=== PATIENT | female | born 1940 | race Caucasian/White ===

== ENCOUNTER → 2016-08-16 | Outpatient (CLI) | payer MEDICARE, OTHER ==
--- NOTE | 2016-08-17 06:47 | BD ---
EXAMINATION TYPE: MG DEXA axial skeleton. DATE OF EXAM: 08/16/2016 3:54 PM COMPARISON: Prior DEXA bone scan report April 21, 2004. CLINICAL HISTORY: Postmenopausal female with osteoporosis per order Height: 61 Weight: 101.9 FRAX RISK QUESTIONS: Alcohol (3 or more units per day): no Family History (Parent hip fracture): no Glucocorticoids (More than 3mos): no (Ex: prednisone, prednisolone, methylprednisolone, dexamethasone, and hydrocortisone). History of Fracture in Adulthood: no Secondary Osteoporosis: 1. Type 1 Diabetes: no 2. Hyperthyroidism: no 3. Menopause before 45: at age 44 4. Malnutrition: no 5. Chronic liver disease: no Rheumatoid Arthritis: no Current Tobacco Use: no RISK FACTORS HISTORY OF: Hip Fracture (Right/Left): no Spine Fracture: no History of Wrist Fracture: no Surgery to Spine/Hip(right/left)/Wrist (right/left):no Family History of Osteoporosis: yes Active: yes Diet low in dairy products/other sources of calcium: no Postmenopausal woman: at age 44 Lost more than 2 inches in height since high school: just 2 inches Frequent falls: no Adrenal Insufficiency: no MEDICATIONS: Altace, omeprazole EXAM MEASUREMENTS: Bone mineral densitometry was performed using the [employer] System. Bone mineral density as measured about the Lumbar spine is: ----- L1-L4(G/cm2): 0.994 T Score Values are as follows: ----- L2: -2.4 ----- L3: -1.8 ----- L4: -1.4 ----- L1-L4: -1.5 Bone mineral density has: increased 4.7 % since study of: 04.21.2004 Bone mineral density about the R hip (g/cm2): 0.701 Bone mineral density about the L hip (g/cm2): 0.789 T Score values are as follows: -----R Neck: -2.4 -----L Neck: -1.8 -----R Intertrochanter: -1.8 -----L Intertrochanter: -2.1 Bone mineral density has: decreased -3.1 of: 04.21.2004 IMPRESSION: Osteopenia (T Score between -2.5 and -1 as noted by T score values in low back and both hips is curre ntly present. There is slightly increased risk of fracture and the patient may be considered for german tment. Re-Screen 1-2 years. NOTE: T-SCORE=SD OF THE YOUNG ADULT MEAN.
--- NOTE | 2016-08-17 13:12 | MM ---
Reason for exam: screening (asymptomatic). Last mammogram was performed 1 year ago. History: Patient is postmenopausal. Family history of breast cancer in mother at age 67. Benign excisional biopsy of the left breast, 1995. Took estrogen for 20 years. Physical Findings: A clinical breast exam by your physician is recommended on an annual basis and results should be correlated with mammographic findings. MG Screening Mammo w CAD Bilateral CC and MLO view(s) were taken. Prior study comparison: August 08, 2015, bilateral MG screening mammo w CAD. August 06, 2014, bilateral MG screening mammo w CAD. The breast tissue is extremely dense which could obscure a lesion on mammography. No significant changes when compared with prior studies. ASSESSMENT: Benign, BI-RAD 2 RECOMMENDATION: Routine screening mammogram of both breasts in 1 year.
== END ==
LOC: RADMAMWWP 15:11
PROVIDERS: ATTEND Internal Medicine
DX: Z12.31 Encounter for screening mammogram for malignant neoplasm of breast (principal); M85.89 Other specified disorders of bone density and structure, multiple sites; M81.0 Age-related osteoporosis without current pathological fracture
CPT/HCPCS: 77080; G0202

== ENCOUNTER → 2016-09-10 | Outpatient (CLI) | payer MEDICARE, OTHER ==
--- NOTE | 2016-09-10 15:01 | US ---
EXAMINATION TYPE: US carotid duplex BILAT DATE OF EXAM: 09/10/2016 2:45 PM COMPARISON: NONE CLINICAL HISTORY: I65.23 carotid stenosis. EXAM MEASUREMENTS: RIGHT: Peak Systolic Velocity (PSV) cm/sec ----- Right CCA: 81.6 ----- Right ICA: 106.1 ----- Right ECA: 72.2 ICA/CCA ratio: 1.3 RIGHT: End Diastole cm/sec ----- Right CCA: 24.8 ----- Right ICA: 31.7 ----- Right ECA: 11.7 LEFT: Peak Systolic Velocity (PSV) cm/sec ----- Left CCA: 76.7 ----- Left ICA: 97.6 ----- Left ECA: 144.9 ICA/CCA ratio: 1.3 LEFT: End Diastole cm/sec ----- Left CCA: 21.6 ----- Left ICA: 39.2 ----- Left ECA: 18.8 VERTEBRALS (direction of flow): Right Vertebral: Antegrade Left Vertebral: Antegrade Mild plaque noted bilateral bifurcations. Slightly increased velocities left ECA IMPRESSION: 1. Mild plaque noted bilaterally with no significant hemodynamic stenosis.
--- NOTE | 2016-09-11 08:56 | ECHOF ---
Referral Reason:I65.23 carotid stenosis MEASUREMENTS -------- HEIGHT: 152.4 cm WEIGHT: 45.8 kg BP: IVSd: 0.8 cm (0.6 - 1.1) LVIDd: 3.5 cm (3.9 - 5.3) LVPWd: 1.1 cm (0.6 - 1.1) IVSs: 1.0 cm LVIDs: 2.9 cm LVPWs: 1.2 cm LA Diam: 2.8 cm (2.7 - 3.8) Ao Diam: 2.7 cm (2.0 - 3.7) AV Cusp: 1.6 cm (1.5 - 2.6) LA Diam: 3.2 cm (2.7 - 3.8) MV EXCURSION: 21.714 mm (> 18.000) MV EF SLOPE: 138 mm/s (70 - 150) EPSS: 0.3 cm MV E Chirag: 0.89 m/s MV DecT: 180 ms MV A Chirag: 0.63 m/s MV E/A Ratio: 1.41 RAP: 5.00 mmHg RVSP: 40.84 mmHg FINDINGS -------- Sinus rhythm. This was a technically good study. LV size, wall thickness and systolic function are normal, with an EF greater than 55%. The right ventricle is normal in size. The right atrial size is normal. Small Diane Membranous vsd. There is mild aortic valve sclerosis. There is no evidence of aortic regurgitation. Mild mitral annular calcification present. Mild mitral regurgitation is present. Mild tricuspid regurgitation present. There is mild pulmonary hypertension. The right ventricular systolic pressure, as measured by Doppler, is 40.84mmHg. There is no pulmonic regurgitation present. The aortic root size is normal. There is no pericardial effusion. CONCLUSIONS -------- 1. LV size, wall thickness and systolic function are normal, with an EF greater than 55%. 2. Small Diane Membranous vsd. 3. There is mild aortic valve sclerosis. 4. Mild mitral annular calcification present. 5. Mild mitral regurgitation is present. 6. Mild tricuspid regurgitation present. 7. There is mild pulmonary hypertension. 8. The right ventricular systolic pressure, as measured by Doppler, is 40.84mmHg. MARKET RISK ANALYST: Arlette Mchugh RDCS
== END | disposition home or self-care (01) ==
LOC: RADUSMAIN 14:17
PROVIDERS: ATTEND Internal Medicine
DX: I65.23 Occlusion and stenosis of bilateral carotid arteries (principal); I34.0 Nonrheumatic mitral (valve) insufficiency
CPT/HCPCS: 93306; 93880

== ENCOUNTER → 2016-11-16 | Outpatient (CLI) | payer MEDICARE, OTHER ==
--- NOTE | 2016-11-16 13:33 | MR ---
EXAMINATION TYPE: MR brain and iac wo/w con DATE OF EXAM: 11/16/2016 12:34 PM COMPARISON: Previous study dated 04/04/2015. HISTORY: Benign neoplasm of cranial nerves TECHNIQUE: Multiplanar, multiecho imaging of the brain was obtained with and without intravenous adm inistration of 10 mL intravenous MultiHance. FINDINGS: Midline structures are unremarkable. There is a normal craniocervical junction. There is evidence of encephalomalacia involving the right cerebellar hemisphere. There is no evidence of restricted diffusion. There are normal vascular flow voids. The orbits are normal. There has been a right occipital craniotomy. The left CP angle is normal. The seventh 8th nerve compl ex on the left is unremarkable. There is no abnormal enhancement on the left. There is no other abnormal enhancement. There are scattered high signal FLAIR lesions throughout the deep white matter tracts of the cerebral hemispheres. These are unchanged from previous. There is mucoperiosteal disease involving the maxillary sinuses bilaterally. This is unchanged from p revious. There is no mass effect, midline shift or intracranial blood identified. There is a lesion in the CP angle extending into the right internal auditory canal. This has decrease d in size from 21 x 8.6 mm to 17.5 x 7.6 mm. IMPRESSION: 1. 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 2. 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 3. STABLE, PUNCTATE FLAIR LESIONS IN BOTH CEREBRAL HEMISPHERES
== END | disposition home or self-care (01) ==
LOC: RADMRIMAIN 10:46
PROVIDERS: ATTEND Otolaryngology
DX: D36.10 Benign neoplasm of peripheral nerves and autonomic nervous system, unspecified (principal); G93.89 Other specified disorders of brain; Z98.890 Other specified postprocedural states
CPT/HCPCS: 82565; 84520; 70553; 36415; A9577

== ENCOUNTER → 2017-02-04 | Outpatient (CLI) | payer MEDICARE, OTHER ==
--- NOTE | 2017-02-04 21:21 | US ---
EXAMINATION TYPE: US kidneys/renal and bladder DATE OF EXAM: 02/04/2017 COMPARISON: NONE CLINICAL HISTORY: R94.4 Abnormal results of kidney function studies. EXAM MEASUREMENTS: Right Kidney: 8.0 x 5.5 x 3.7 cm Left Kidney: 8.5 x 4.5 x 3.3 cm Post Void Residual Volume: 3.1 mL Right Kidney: No hydronephrosis or masses seen Left Kidney: No hydronephrosis or masses seen Bladder: wnl Bilateral Jets seen: Yes Normal Post Void Residual: Yes There is no evidence for hydronephrosis at this point in time. No nephrolithiasis is seen. No ginger s are identified. The urinary bladder is anechoic. Bilateral ureteral jets are seen. IMPRESSION: No abnormality noted.
== END | disposition home or self-care (01) ==
LOC: RADUSWWP 15:40
PROVIDERS: ATTEND Internal Medicine
DX: R94.4 Abnormal results of kidney function studies (principal)
CPT/HCPCS: 76770

== ENCOUNTER → 2017-10-10 | Outpatient (CLI) | payer MEDICARE, OTHER ==
--- NOTE | 2017-10-10 14:18 | MM ---
Reason for exam: screening (asymptomatic). Last mammogram was performed 1 year and 2 months ago. History: Patient is postmenopausal. Family history of breast cancer in mother at age 67. Benign excisional biopsy of the left breast, 1995. Took estrogen for 20 years. Physical Findings: A clinical breast exam by your physician is recommended on an annual basis and results should be correlated with mammographic findings. MG 3D Screening Mammo W/Cad Bilateral CC and MLO view(s) were taken. Prior study comparison: August 16, 2016, bilateral MG screening mammo w CAD. August 08, 2015, bilateral MG screening mammo w CAD. The breast tissue is heterogeneously dense. This may lower the sensitivity of mammography. Finding #1: There is stable architectural distortion in the left breast consistent with known excisional biopsy. Finding #2: There are typically benign round calcifications in the left breast. There is no discrete abnormality. ASSESSMENT: Benign, BI-RAD 2 RECOMMENDATION: Routine screening mammogram of both breasts in 1 year.
== END | disposition home or self-care (01) ==
LOC: RADMAMWWP 09:05
PROVIDERS: ATTEND Internal Medicine
DX: Z12.31 Encounter for screening mammogram for malignant neoplasm of breast (principal)
CPT/HCPCS: 77063; 77067

== ENCOUNTER → 2017-11-29 | Outpatient (CLI) | payer MEDICARE, OTHER ==
--- NOTE | 2017-11-29 15:05 | MR ---
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 Status post rad iation. TECHNIQUE: Multiplanar, multisequence images of the brain and internal auditory canals is performed without and with IV contrast, utilizing 4.5 mL intravenous Gadavist . FINDINGS: Diffusion weighted images demonstrate no evidence of a recent infarct or other diffusion ab normality. There is no extra-axial fluid collection . The ventricular system and cisternal spaces a re symmetrically prominent as seen on the prior compatible with age-related volume loss. 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 Degree of moderate burden nonspecific white treated as T2/FLAIR foci of hyperintensity throughout the subcortical and periventricular white matter are similar to the prior exam. Again these likely r epresent sequela of microangiopathy. Midline structures demonstrate normal morphology. Degenerative pannus is seen posterior to the dens. The craniocervical junction appears within normal limits. The dural venous sinuses appear patent. Mi ld mucosal thickening is seen within the left maxillary and ethmoid sinuses. Remaining visualized par anasal sinuses and mastoid air cells are well aerated. Globes are unremarkable. 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 The largest dimensions of this mass measures approximately 1.6 cm and 1.9 cm on T 1 postcontrast fat sat axial images 12 and 14 respectively. This measures approximately 2.1 cm in the coronal plane on image 9. This is overall similar in size and morphology to the prior of 11/26/2016. Craniotomy defect along the right posterior lateral occipital lobe is again noted from prior acoustic neuroma resection. No new abnormal areas of enhancement are seen. IMPRESSION: 1. 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 No new normal intracranial enhancement. 2. 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
== END | disposition home or self-care (01) ==
LOC: RADMRIMAIN 12:49
PROVIDERS: ATTEND Otolaryngology
DX: D33.3 Benign neoplasm of cranial nerves (principal); G93.89 Other specified disorders of brain; I73.9 Peripheral vascular disease, unspecified; R90.89 Other abnormal findings on diagnostic imaging of central nervous system; Z98.890 Other specified postprocedural states
CPT/HCPCS: 82565; 84520; 70553; 36415; A9581

== ENCOUNTER → 2018-10-18 | Outpatient (CLI) | payer MEDICARE, OTHER ==
--- NOTE | 2018-10-18 16:39 | BD ---
EXAMINATION TYPE: Axial Bone Density DATE OF EXAM: 10/18/2018 COMPARISON: 2017 CLINICAL HISTORY: 78-year-old female disorder of bone Height: 5 1/2 Weight: 102 FRAX RISK QUESTIONS: Secondary Osteoporosis: 3. Menopause before 45: y RISK FACTORS HISTORY OF: Postmenopausal woman: y If Premenopausal, do you have irregular periods: MEDICATIONS: Additional Medications: blood pressure Additional History: EXAM MEASUREMENTS: Bone mineral densitometry was performed using the [employer] System. Bone mineral density as measured about the Lumbar spine is: ----- L1-L4(G/cm2): 0.968 T Score Values are as follows: ----- L2: -1.6 ----- L3: -1.7 ----- L4: -1.6 ----- L1-L4: -1.8 Bone mineral density has: Decreased -4.2% since study of: 08/16/2016 Bone mineral density about the R hip (g/cm2): 0.679 Bone mineral density about the L hip (g/cm2): 0.784 T Score values are as follows: -----R Neck: -2.6 -----L Neck: -1.8 -----R Total: -2.2 -----L Total: -1.7 Bone mineral density has: Decreased -0.8% since study of: 08/16/2016 IMPRESSION: Osteoporosis (T Score less than -2.5). There is increased fracture risk and therapy is usually indicated based on age. Re-Screen 1-2 years. NOTE: T-SCORE=SD OF THE YOUNG ADULT MEAN.
--- NOTE | 2018-10-19 09:20 | MM ---
Reason for exam: screening (asymptomatic). Last mammogram was performed 1 year ago. History: Patient is postmenopausal. Family history of breast cancer in mother at age 67. Benign excisional biopsy of the left breast, 1995. Took estrogen for 20 years. Physical Findings: A clinical breast exam by your physician is recommended on an annual basis and results should be correlated with mammographic findings. MG Screening Mammo w CAD Bilateral CC and MLO view(s) were taken. Prior study comparison: October 10, 2017, bilateral MG 3d screening mammo w/cad. August 16, 2016, bilateral MG screening mammo w CAD. The breast tissue is heterogeneously dense. This may lower the sensitivity of mammography. No significant changes when compared with prior studies. ASSESSMENT: Negative, BI-RAD 1 RECOMMENDATION: Routine screening mammogram of both breasts in 1 year. Patient should continue monthly self breast exams. A negative report should not preclude additional follow up of suspicious palpable abnormalities.
== END | disposition home or self-care (01) ==
LOC: RADMAMWWP 09:37
PROVIDERS: ATTEND Internal Medicine
DX: Z12.31 Encounter for screening mammogram for malignant neoplasm of breast (principal); M81.0 Age-related osteoporosis without current pathological fracture
CPT/HCPCS: 77067; 77080

== ENCOUNTER → 2019-11-19 | Outpatient (CLI) | payer MEDICARE, OTHER ==
[2019-11-19 08:26] LABS: Basophils % (A) 1 %; Eosinophils # (A) 0.2 k/uL (0-0.7); Eosinophils % (A) 4 %; HCT 39.4 % (34.0-46.0); HGB 13.2 gm/dL (11.4-16.0); Lymphocytes # (A) 1.5 k/uL (1.0-4.8); Lymphocytes % (A) 35 %; MCH 33.4 pg (25.0-35.0); MCHC 33.5 g/dL (31.0-37.0); MCV 99.5 fL (80.0-100.0); Mean Platelet Volume 7.3; Monocytes # (A) 0.2 k/uL (0-1.0); Monocytes % (A) 5 %; Neutrophils # (A) 2.2 k/uL (1.3-7.7); Neutrophils % (A) 52 %; Platelet Count 170 k/uL (150-450); RBC 3.96 m/uL (3.80-5.40); RDW 12.5 % (11.5-15.5); WBC 4.2 k/uL (3.8-10.6)
[2019-11-19 17:58] LABS: African American GFR (CKD) 54.9 (60.0-200.0); Albumin 4.7 g/dL (3.80-4.90); Albumin/Globulin Ratio 2.61 (1.60-3.17); Anion Gap 7.3 mmol/L (4.00-12.00); BUN/Creat Ratio 21.82 Ratio (12.00-20.00); Calcium 9.9 mg/dL (8.7-10.3); Carbon Dioxide 28.7 mmol/L (21.6-31.8); Chol/HDL Ratio 2.11; Globulin 1.8 g/dL (1.6-3.3); LDL Cholesterol,Calculated 108.4 mg/dL (0.0-131.0); Non-African American GFR(CKD) 47.4 (60.0-200.0); Potassium 4.8 mmol/L (3.5-5.5); Total Bilirubin 0.5 mg/dL (0.2-1.2); Total Protein 6.5 g/dL (6.2-8.2); VLDL Calculation 16.6 mg/dL (5.00-40.00)
== END | disposition home or self-care (01) ==
LOC: LABWHC1 07:46
PROVIDERS: ATTEND Internal Medicine
DX: Z00.00 Encounter for general adult medical examination without abnormal findings (principal); E78.2 Mixed hyperlipidemia
CPT/HCPCS: 36415; 80053; 80061; 85025

== ENCOUNTER → 2019-11-21 | Outpatient (CLI) | payer MEDICARE, OTHER ==
--- NOTE | 2019-11-23 10:06 | MR ---
EXAMINATION TYPE: MR brain and iac wo/w con DATE OF EXAM: 11/21/2019 COMPARISON: Previous exam 11/29/2017 HISTORY: Acoustic neuroma follow-up, surgery 2002 TECHNIQUE: Multiplanar, multisequence images of the brain and brainstem, internal auditory canals is performed w ithout and with IV contrast, utilizing 4.5 mL intravenous Gadavist . FINDINGS: Diffusion weighted images demonstrate no evidence of a recent infarct or other diffusion ab normality. There is no extra-axial fluid collection or significant interval change in white matter s ignal abnormality. The ventricular system and cisternal spaces are normal in size and appearance. T he encephalomalacia involving the right cerebellar hemisphere shows a stable appearance. Cortical atr ophy is again noted. There are normal vascular flow voids. Asymmetry at the level of the left shows a similar appearance in the globes. The avidly enhancing focus along the intracanalicular internal aud itory canal region on the right extending towards the right cerebellopontine angle is essentially sta ble. IMPRESSION: Stable exam. No significant interval change is evident.
== END | disposition home or self-care (01) ==
LOC: RADMRIMAIN 08:33
PROVIDERS: ATTEND Otolaryngology
DX: D33.3 Benign neoplasm of cranial nerves (principal)
CPT/HCPCS: 70553; A9585

== ENCOUNTER → 2020-02-04 | Outpatient (CLI) | payer MEDICARE, OTHER ==
--- NOTE | 2020-02-05 10:06 | MM ---
Reason for exam: screening (asymptomatic). Last mammogram was performed 1 year and 4 months ago. History: Patient is postmenopausal. Family history of breast cancer in mother at age 67. Benign excisional biopsy of the left breast, 1995. Took estrogen for 20 years. Physical Findings: A clinical breast exam by your physician is recommended on an annual basis and results should be correlated with mammographic findings. MG 3D Screening Mammo W/Cad Bilateral CC and MLO view(s) were taken. Prior study comparison: October 18, 2018, bilateral MG screening mammo w CAD. October 10, 2017, bilateral MG 3d screening mammo w/cad. The breast tissue is extremely dense which could obscure a lesion on mammography. There is chronic nodularity bilaterally. No significant changes when compared with prior studies. ASSESSMENT: Benign, BI-RAD 2 RECOMMENDATION: Routine screening mammogram of both breasts in 1 year.
== END | disposition home or self-care (01) ==
LOC: RADMAMWWP 10:41
PROVIDERS: ATTEND Internal Medicine
DX: Z12.31 Encounter for screening mammogram for malignant neoplasm of breast (principal)
CPT/HCPCS: 77063; 77067

== ENCOUNTER → 2020-06-30 | Outpatient (CLI) | payer MEDICARE, OTHER ==
--- NOTE | 2020-06-30 12:44 | EST ---
EXERCISE STRESS AGE: 80 SEX: Female HT: 61" WT: 102 pounds PROTOCOL: Jaun STAGE: I DURATION OF EXERCISE: 3 minutes HEART RATE REST: 72 BLOOD PRESSURE REST: 154/74 MAXIMUM HEART RATE ACHIEVED: 154 MAXIMUM BLOOD PRESSURE: 215/71 85% MPHR: 118 100% MPHR: 139 METS: 4.6 INDICATIONS: Abnormal EKG. CLINICAL INFORMATION: Baseline rhythm is a sinus mechanism, rate of 72, normal axis and intervals, nonspecific ST-T wave changes. Baseline blood pressure 154/74 mmHg. The patient exercised per protocol for 3 minute reaching peak rate 154 beats per minute which is equal to 100% maximum predicted heart rate. Peak blood pressure 215/71 mmHg. Test was terminated secondary to fatigue. There was no chest pain. Electrocardiograph monitoring revealed rare PVCs with 0.[address]-segment depression. CONCLUSION: 1. Decreased exercise tolerance with rare PVCs. 2. Nondiagnostic electrocardiograph stress testing secondary to baseline EKG abnormality. 3. If clinically indicated, an imaging stress test will be helpful. MMODL / IJN: [id number] /
== END | disposition home or self-care (01) ==
LOC: RADNMMAIN 09:42
PROVIDERS: ATTEND Internal Medicine
DX: R94.31 Abnormal electrocardiogram [ECG] [EKG] (principal); I21.09 ST elevation (STEMI) myocardial infarction involving other coronary artery of anterior wall
CPT/HCPCS: 93017

== ENCOUNTER → 2020-07-14 | Outpatient (CLI) | payer MEDICARE, OTHER ==
[~2020-07-14] MED LIST: REGADENOSON 0.4 MG/5 ML SYRINGE IV PRN
--- NOTE | 2020-07-14 11:08 | NM ---
EXAMINATION TYPE: NM stress lexiscan cardiolite DATE OF EXAM: 07/14/2020 COMPARISON: NONE HISTORY: Precordial chest pain and abnormal EKG TECHNIQUE: After the intravenous administration of 9.92 mCi Tc 99m Sestamibi - Cardiolite resting SP ECT images acquired 55 minutes post injection. The patient received 0.4mg Lexiscan, 25 mCi Tc 99m Sestamibi - Stress images obtained 35 minutes post injection FINDINGS: Review of stress and rest SPECT images demonstrates fixed defect involving the anterior wall. No defi nite stress-induced ischemia. Gated analysis shows normal wall motion with an estimated left ventricu lar ejection fraction of 88 %. IMPRESSION: No scintigraphic evidence for reversible ischemia. Acute
--- NOTE | 2020-07-14 11:42 | P.STRESS ---
- Stress Test Note Stress Test Results/Findings: Exam Performed: NM stress lexiscan cardiolite Exam Date: 07/14/20 Reason for Exam: ABNORMAL EKG Height: 5 ft 1 in Weight: 45.359 kg Protocol: LEXISCAN CARDIOLITE Stage: N/A Duration of Exercise: N/A Resting Heart Rate: 73 Resting Blood Pressure: 157/79 Maximum Achieved Heart Rate: 113 Maximum Achieved Blood Pressure: 157/79 85% PMHR: 118 100% PMHR: 139 METS: N/A Technologist Comment: Stress Test Results/Findings: This is a 80-year-old female with history of smoking being evaluated for cardiac status, because of abnormal EKG. Based on EKG showed sinus rhythm With T-Wave Inversions in Inferior Leads. Blood Pressure at Rest Is 157/79 with Pulse Rate of 73. A Standard Dose of Lexiscan was infused. EKGs taken during after infusion did not reveal any significant changes from baseline. Patient did not experience any chest pain. Final impression: #1. Number Lexiscan stress test #2. Report on nuclear images to be given by the radiologist
== END | disposition home or self-care (01) ==
LOC: RADNMMAIN 07:44
PROVIDERS: ATTEND Internal Medicine
DX: R94.31 Abnormal electrocardiogram [ECG] [EKG] (principal)
CPT/HCPCS: 93017; 78452; A9500; J2785

== ENCOUNTER → 2020-08-25 | Outpatient (CLI) | payer MEDICARE, OTHER ==
--- NOTE | 2020-08-25 14:39 | US ---
EXAMINATION TYPE: US kidneys/renal and bladder DATE OF EXAM: 08/25/2020 COMPARISON: 02/04/2017 CLINICAL HISTORY: 80-year-old female N18.31 STAGE 3 CHRONIC KIDNEY DISEASE. TECHNIQUE: Multiple sonographic images of the kidneys and bladder are obtained. FINDINGS: Right Kidney: 8.1 x 5.3 x 3.3 cm Left Kidney: 8.5 x 4.7 x 4.6 cm No hydronephrosis. Bladder: No gross abnormality Bilateral Jets seen: yes Post Void Residual Volume: 22.8 mL Normal Post Void Residual: yes IMPRESSION: 1. Small size of the kidneys suggests underlying chronic medical renal disease. No hydronephrosis. 2. Increased postvoid bladder volume of 23 mL still falls within acceptable limits.
== END ==
LOC: RADUSWWP 12:32
PROVIDERS: ATTEND Internal Medicine Nephrology
DX: N18.31 Chronic kidney disease, stage 3a (principal)
CPT/HCPCS: 76770

== ENCOUNTER → 2021-05-22 | Outpatient (CLI) | payer MEDICARE, OTHER ==
[2021-05-22 12:52] LABS: Appearance,Urine Clear (Clear); Bilirubin,Urine Negative (Negative); Blood,Urine Negative (Negative); Color,Urine Yellow; Glucose,Urine (UA) Negative (Negative); Ketones,Urine Negative (Negative); Leukocyte Esterase,Urine Negative (Negative); Nitrite,Urine Negative (Negative); Protein,Urine Negative (Negative); Specific Gravity,Urine 1.016 (1.001-1.035); Urobilinogen,Urine <2.0 mg/dL (<2.0)
[2021-05-22 18:33] LABS: Basophils # (A) 0.05 X 10*3/uL (0.00-0.10); Eosinophils # (A) 0.13 X 10*3/uL (0.04-0.35); Eosinophils % (A) 2.7 %; HCT 36.3 % (37.2-46.3); HGB 11.6 g/dL (12.0-15.0); MCH 32.2 pg (27.0-32.0); MCV 100.8 fL (80.0-97.0); Mean Platelet Volume 10.7 fL (9.5-12.2); Monocytes # (A) 0.44 X 10*3/uL (0.20-1.00); Monocytes % (A) 9.1 %; Neutrophils # (A) 2.71 X 10*3/uL (1.80-7.70); Platelet Count 210 X 10*3/uL (140-440); RDW 12.6 % (11.5-14.5); WBC 4.84 X 10*3/uL (4.50-10.00)
[2021-05-22 21:53] LABS: % Iron Saturation 36.74 (12.00-45.00); African American GFR (CKD) 54.5 (60.0-200.0); Albumin 4.7 g/dL (3.8-4.9); Albumin/Globulin Ratio 2.35 (1.60-3.17); Anion Gap 10.9 mmol/L (10.00-18.00); BUN/Creat Ratio 21.55 Ratio (12.00-20.00); Blood Urea Nitrogen 23.7 mg/dL (9.0-27.0); Calcium 10.2 mg/dL (8.7-10.3); Carbon Dioxide 23.1 mmol/L (20.0-27.5); Ferritin 88.9 ng/mL (10.0-291.0); Magnesium 2.1 mg/dL (1.5-2.4); Phosphorus 3.7 mg/dL (2.4-5.1); Potassium 5.1 mmol/L (3.5-5.5); Total Bilirubin 0.3 mg/dL (0.30-1.20); Total Protein 6.7 g/dL (6.2-8.2); Uric Acid 5.4 mg/dL (2.9-7.7)
== END | disposition home or self-care (01) ==
LOC: LABWHC1 11:19
PROVIDERS: ATTEND Internal Medicine
DX: D64.9 Anemia, unspecified (principal); E55.9 Vitamin D deficiency, unspecified; M10.9 Gout, unspecified; N39.0 Urinary tract infection, site not specified; N25.81 Secondary hyperparathyroidism of renal origin; N18.31 Chronic kidney disease, stage 3a
CPT/HCPCS: 36415; 80053; 81003; 82306; 82728; 83540; 83550; 83735; 83970; 84100; 84550; 85025

== ENCOUNTER → 2021-06-24 | Outpatient (CLI) | payer MEDICARE, OTHER ==
--- NOTE | 2021-06-25 16:57 | BD ---
EXAMINATION TYPE: Axial Bone Density DATE OF EXAM: 06/24/2021 COMPARISON: 2019 CLINICAL HISTORY: Postmenopausal screening Height: 61 Weight: 103.6 FRAX RISK QUESTIONS: Alcohol (3 or more units per day): no Family History (Parent hip fracture): yes Glucocorticoids (More than 3mos): no (Ex: prednisone, prednisolone, methylprednisolone, dexamethasone, and hydrocortisone). History of Fracture in Adulthood: no Secondary Osteoporosis: 1. Type 1 Diabetes: no 2. Hyperthyroidism: no 3. Menopause before 45: no 4. Malnutrition: no 5. Chronic liver disease: no Rheumatoid Arthritis: no Current Tobacco Use: no RISK FACTORS HISTORY OF: Surgery to Spine/Hip(right/left)/Wrist (right/left): no Family History of Osteoporosis: yes Active: yes Diet low in dairy products/other sources of calcium: no Postmenopausal woman: yes Lost more than 2 inches in height since high school: no MEDICATIONS: blood pressure, cholesterol, folic acid, vit d Additional History: EXAM MEASUREMENTS: Bone mineral densitometry was performed using the [employer]. Bone mineral density as measured about the Lumbar spine is: ----- L1-L4(G/cm2): 0.968 T Score Values are as follows: ----- L2: -1.6 ----- L3: -1.5 ----- L4: -1.8 ----- L1-L4: -1.8 Bone mineral density has: 0 % since study of: 10.18.2018 Bone mineral density about the R hip (g/cm2): 0.674 Bone mineral density about the L hip (g/cm2): 0.791 T Score values are as follows: -----R Neck: -2.6 -----L Neck: -1.8 -----R Total: -2.0 -----L Total: -1.8 Bone mineral density has: increased 0.9 % since study of: 10.18.2018 IMPRESSION: Osteoporosis (T Score less than -2.5). There is increased fracture risk and therapy is usually indicated based on age. Re-Screen 1-2 years. NOTE: T-SCORE=SD OF THE YOUNG ADULT MEAN.
--- NOTE | 2021-06-29 11:20 | MM ---
Reason for exam: screening (asymptomatic). Last mammogram was performed 1 year and 5 months ago. History: Patient is postmenopausal. Family history of breast cancer in mother at age 67. Benign excisional biopsy of the left breast, 1995. Took estrogen for 20 years. Physical Findings: A clinical breast exam by your physician is recommended on an annual basis and results should be correlated with mammographic findings. MG 3D Screening Mammo W/Cad Bilateral CC and MLO view(s) were taken. Prior study comparison: February 04, 2020, bilateral MG 3d screening mammo w/cad. October 18, 2018, bilateral MG screening mammo w CAD. The breast tissue is heterogeneously dense. This may lower the sensitivity of mammography. No significant changes when compared with prior studies. ASSESSMENT: Benign, BI-RAD 2 RECOMMENDATION: Routine screening mammogram of both breasts in 1 year. Patient should continue monthly self breast exams. A negative report should not preclude additional follow up of suspicious palpable abnormalities.
== END | disposition home or self-care (01) ==
LOC: RADMAMWWP 13:43
PROVIDERS: ATTEND Internal Medicine
DX: Z12.31 Encounter for screening mammogram for malignant neoplasm of breast (principal); M81.0 Age-related osteoporosis without current pathological fracture; M85.89 Other specified disorders of bone density and structure, multiple sites; Z78.0 Asymptomatic menopausal state; Z80.3 Family history of malignant neoplasm of breast
CPT/HCPCS: 77063; 77067; 77080

== ENCOUNTER → 2021-07-13 | Outpatient (CLI) | payer MEDICARE, OTHER ==
--- NOTE | 2021-07-13 10:58 | US ---
EXAMINATION TYPE: US carotid duplex BILAT DATE OF EXAM: 07/13/2021 COMPARISON: 09/10/2016 CLINICAL HISTORY: 81-year-old female I65.23 CAROTID STENOSIS. Dizziness. TECHNIQUE: Carotid duplex ultrasound examination. Indirect Doppler criteria was utilized. FINDINGS: EXAM MEASUREMENTS: RIGHT: Peak Systolic Velocity (PSV) cm/sec ----- Right CCA: 91.6 ----- Right ICA: 118.0 ----- Right ECA: 80.3 ICA/CCA ratio: 1.3 RIGHT: End Diastole cm/sec ----- Right CCA: 21.4 ----- Right ICA: 33.3 ----- Right ECA: 11.5 LEFT: Peak Systolic Velocity (PSV) cm/sec ----- Left CCA: 96.4 ----- Left ICA: 110.0 ----- Left ECA: 110.0 ICA/CCA ratio: 1.1 LEFT: End Diastole cm/sec ----- Left CCA: 18.4 ----- Left ICA: 35.7 ----- Left ECA: 10.4 VERTEBRALS (direction of flow): Right Vertebral: Antegrade Left Vertebral: Antegrade Rhythm: Normal Sign Builder notes: Mild homogeneous plaque with no significant stenosis IMPRESSION: No hemodynamically significant internal carotid artery stenosis on either side. Criteria for Assigning % of Stenosis / Diameter reduction (Estimation based on the indirect measurements of the internal carotid artery velocities (ICA PSV). 1. Normal (no stenosis)=ICA PSV < 125 cm/s: ratio < 2.0: ICA EDV<40 cm/s. 2. Less than 50% stenosis=ICA PSV < 125 cm/s: ratio < 2.0: ICA EDV<40 cm/s. 3. 50 to 69% stenosis=ICA PSV of 125 to 230 cm/s: ration 2.0 ? 4.0: ICA EDV 40-100 cm/s. 4. Greater than 70% stenosis to near occlusion= ICA PSV > 230 cm/s: ratio > 4.0: ICA EDV > 100 cm/s. 5. Near occlusion= ICA PSV velocities may be low or undetectable: variable ratio and ICA EDV. 6. Total occlusion=unable to detect flow.
--- NOTE | 2021-07-13 12:00 | ECHOF ---
Referral Reason:I34.0 nonrheumatic mitral valve regurgitation MEASUREMENTS -------- HEIGHT: 154.9 cm WEIGHT: 46.3 kg BP: RVIDd: 1.6 cm (< 3.3) IVSd: 0.7 cm (0.6 - 1.1) LVIDd: 3.5 cm (3.9 - 5.3) LVPWd: 0.8 cm (0.6 - 1.1) IVSs: 1.5 cm LVIDs: 1.9 cm LVPWs: 1.8 cm LAESV Index (A-L): 18.52 ml/m Ao Diam: 2.8 cm (2.0 - 3.7) AV Cusp: 1.5 cm (1.5 - 2.6) LA Diam: 3.1 cm (2.7 - 3.8) MV EXCURSION: 10.325 mm (> 18.000) MV EF SLOPE: 70 mm/s (70 - 150) EPSS: 0.4 cm MV E Chirag: 0.75 m/s MV DecT: 285 ms MV A Chirag: 0.67 m/s MV E/A Ratio: 1.11 AR PHT: 530 ms RAP: 5.00 mmHg RVSP: 26.13 mmHg FINDINGS -------- This was a technically good study. The left ventricular size is normal. Left ventricular wall thickness is normal. Overall left vent ricular systolic function is normal with, an EF between 55 - 60 %. The diastolic filling pattern is normal for the age of the patient 9.90. The right ventricle is normal in size. The left atrial size is normal. Normal LA size by volume 22+/-6 ml/m2. The right atrial size is normal. The aortic valve is trileaflet and appears structurally normal. There is mild aortic regurgitation. The mitral valve is normal. Mild mitral regurgitation is present. The tricuspid valve appears structurally normal. Mild tricuspid regurgitation present. Right vent ricular systolic pressure is normal at < 35 mmHg. There is no pulmonic regurgitation present. The aortic root size is normal. Normal inferior vena cava with normal inspiratory collapse consistent with estimated right atrial pre ssure of 5 mmHg. There is no pericardial effusion. CONCLUSIONS -------- 1. The left ventricular size is normal. 2. Left ventricular wall thickness is normal. 3. Overall left ventricular systolic function is normal with, an EF between 55 - 60 %. 4. The diastolic filling pattern is normal for the age of the patient 9.90 5. There is mild aortic regurgitation. 6. Mild mitral regurgitation is present. 7. Mild tricuspid regurgitation present. 8. There is no pericardial effusion. CHEMICAL INSTRUMENTATION OFFICER: Taryn Nash RDCS
== END | disposition home or self-care (01) ==
LOC: RADUSWWP 10:20
PROVIDERS: ATTEND Internal Medicine
DX: I08.3 Combined rheumatic disorders of mitral, aortic and tricuspid valves (principal); I65.23 Occlusion and stenosis of bilateral carotid arteries
CPT/HCPCS: 93306; 93880

== ENCOUNTER → 2021-12-23 | Outpatient (CLI) | payer MEDICARE, OTHER ==
--- NOTE | 2021-12-23 18:05 | MR ---
EXAMINATION TYPE: MR brain and iac wo/w con DATE OF EXAM: 12/23/2021 COMPARISON: Prior exam 11/21/2019 HISTORY: Acoustic neuroma, Surgery 2003 TECHNIQUE: Multiplanar, multisequence images of the brain and brainstem, internal auditory canals is performed w ithout and with IV contrast, utilizing 5 mL intravenous Gadavist . Small [id number] high-resolutio n images obtained through the cerebellopontine angles and internal auditory canals FINDINGS: There is abnormal signal consistent with patient's prior surgery with encephalomalacia at t he level of the right lateral aspect of the cerebellum including the middle cerebellar P. Dunkle calvin lar to prior exam. Diffusion weighted images demonstrate no evidence of a recent infarct or other dif fusion abnormality. There is no extra-axial fluid collection or significant change in white matter s ignal abnormality. The ventricular system and cisternal spaces are normal in size and appearance. T he brain volume is age appropriate. Abnormal soft tissue along the internal auditory canal on the right shows a similar appearance. Infla mmatory changes are present within the mastoid air cells on the right. Petrous bone on the left also shows some mild inflammatory change. There are expected vascular flow voids. Abnormal enhancement is associated with the abnormal soft tissue along the internal auditory canal on the right extending to the cerebellopontine angle is similar distribution. Midline structures demonstrate normal morphology. The craniocervical junction appears within normal limits. The dural venous sinuses appear patent. The visualized sinuses are clear and the globes are s table. IMPRESSION: Findings are essentially stable. Findings consistent with acoustic neuroma and postop chin nges.
== END | disposition home or self-care (01) ==
LOC: RADMRIMAIN 06:14
PROVIDERS: ATTEND Otolaryngology
DX: H93.3X9 Disorders of unspecified acoustic nerve (principal)
CPT/HCPCS: 70553; A9585

== ENCOUNTER → 2022-02-17 | Outpatient (CLI) | payer MEDICARE, OTHER ==
--- NOTE | 2022-02-18 21:34 | US ---
EXAMINATION TYPE: US carotid duplex BILAT DATE OF EXAM: 02/17/2022 COMPARISON: Prior carotid ultrasound July 13, 2021 CLINICAL HISTORY: I65.23 CAROTID STENOSIS. Stenosis. Prior smoker. Hypertension, hyperlipidemia. TECHNIQUE: Carotid duplex ultrasound examination. Indirect Doppler criteria was utilized. FINDINGS: EXAM MEASUREMENTS: RIGHT: Peak Systolic Velocity (PSV) cm/sec ----- Right CCA: 91.8 ----- Right ICA: 94.4 ----- Right ECA: 76.6 ICA/CCA ratio: 1.03 RIGHT: End Diastole cm/sec ----- Right CCA: 15.4 ----- Right ICA: 20.5 ----- Right ECA: 4.23 LEFT: Peak Systolic Velocity (PSV) cm/sec ----- Left CCA: 73.6 ----- Left ICA: 106 ----- Left ECA: 95.0 ICA/CCA ratio: 1.44 LEFT: End Diastole cm/sec ----- Left CCA: 17.8 ----- Left ICA: 27.8 ----- Left ECA: 8.91 VERTEBRALS (direction of flow): Right Vertebral: Antegrade Left Vertebral: Antegrade Rhythm: Normal POLYMERIZATION SUPERVISOR NOTES: Plaque seen within bilateral bulbs. No elevated velocities at this time. Incidental finding: Anechoic area with echogenic focus seen right thyroid lobe at mid: 1.2 x 0.9 x 0.7 cm. Hypoechoic area with echogenic focus seen in left thyroid lobe at mid: 1.1 x 0.9 x 0.6 cm. Mild diffuse atherosclerotic changes redemonstrated. Velocity measurements and ratios remain within n ormal limits. Small thyroid nodules are present. If this is not known finding dedicated thyroid ultra sound is advised to further evaluate. IMPRESSION: No hemodynamically significant stenosis in either internal carotid artery. Criteria for Assigning % of Stenosis / Diameter reduction (Estimation based on the indirect measurements of the internal carotid artery velocities (ICA PSV). 1. Normal (no stenosis)=ICA PSV < 125 cm/s: ratio < 2.0: ICA EDV<40 cm/s. 2. Less than 50% stenosis=ICA PSV < 125 cm/s: ratio < 2.0: ICA EDV<40 cm/s. 3. 50 to 69% stenosis=ICA PSV of 125 to 230 cm/s: ration 2.0 ? 4.0: ICA EDV 40-100 cm/s. 4. Greater than 70% stenosis to near occlusion= ICA PSV > 230 cm/s: ratio > 4.0: ICA EDV > 100 cm/s. 5. Near occlusion= ICA PSV velocities may be low or undetectable: variable ratio and ICA EDV. 6. Total occlusion=unable to detect flow.
== END | disposition home or self-care (01) ==
LOC: RADUSWWP 10:49
PROVIDERS: ATTEND Internal Medicine
DX: I65.23 Occlusion and stenosis of bilateral carotid arteries (principal); I10 Essential (primary) hypertension; E78.5 Hyperlipidemia, unspecified; Z87.891 Personal history of nicotine dependence
CPT/HCPCS: 93880

== ENCOUNTER → 2022-05-19 | Outpatient (CLI) | payer MEDICARE, OTHER ==
--- NOTE | 2022-05-19 15:43 | US ---
EXAMINATION TYPE: US thyroid st tissue head/neck DATE OF EXAM: 05/19/2022 COMPARISON: US CLINICAL HISTORY: E04.1 NONTOXIC SINGLE THYROID NOD. Right thyroid nodule per order. GLAND SIZE: Right Lobe: 5.6 x 2.0 x 1.7 cm Overall Parenchyma: heterogenous Left Lobe: 4.7 x 1.4 x 1.4 cm Overall Parenchyma: heterogeneous Isthmus Thickness: 0.23 cm NODULES RIGHT: # of nodules measured on right: 2. Additional < 5 mm nodules noted. 1. 1.1 X 1.0 x 0.6 cm, mid mid, Prior size: 1.2 x 0.9 x 0.7 cm TIRADS Score: 0 TIRADS Category 1: Benign Composition: Cystic or almost completely cystic (0 points). Recommendation: No FNA 2. 1.6 X 1.5 x 0.9 cm, lower medial thyroid,/portion appears to be within right isthmus, Prior s ize: No prior TIRADS Score: 3 TIRADS Category 3: Mildly Suspicious Composition: Solid or almost completely solid (2 points). Echogenicity: Hyperechoic or isoechoic (1 point). Shape: Wider than tall (0 points). Margin: Smooth (0 points). Echogenic foci: None or large comet-tail artifacts (0 points) Recommendation: If >2.5cm: FNA; If >1.5cm: Follow up at 1,3,5 years LEFT: # of nodules measured on left: 3 1. 0.6 X 0.6 x 0.4 cm, mid lateral, mixed cystic and solid, Prior size: No prior TIRADS Score: 3 TIRADS Category 3: Mildly Suspicious Composition: Mixed cystic and solid (1 point). Echogenicity: Hypoechoic (2 points). Shape: Wider than tall (0 points). Margin: Smooth (0 points). Echogenic foci: None or large comet-tail artifacts (0 points) Recommendation: If >2.5cm: FNA; If >1.5cm: Follow up at 1,3,5 years 2. 1.1 X 0.9 x 0.6 cm, mid medial, solid or almost completely solid, Prior size: 1.1 x 0.9 x 0 .6 cm TIRADS Score: 4 TIRADS Category 4: Moderately Suspicious Composition: Solid or almost completely solid (2 points). Echogenicity: Hypoechoic (2 points). Shape: Wider than tall (0 points). Margin: Smooth (0 points). Echogenic foci: None or large comet-tail artifacts (0 points) Recommendation: If >1.5cm: FNA; If >1cm: Follow up at 1,3,5 years 3. 1.4 X 1.1 x 0.9 cm, lower medial, Prior size: No prior TIRADS Score: 3 TIRADS Category 3: Mildly Suspicious Composition: Solid or almost completely solid (2 points). Echogenicity: Hyperechoic or isoechoic (1 point). Shape: Wider than tall (0 points). Margin: Smooth (0 points). Echogenic foci: None or large comet-tail artifacts (0 points) Recommendation: If >2.5cm: FNA; If >1.5cm: Follow up at 1,3,5 years ISTHMUS: # of nodules measured in the isthmus: 0, Right nodule above appears to be slightly withi n isthmus. Bilateral neck scanned, no evidence of lymphadenopathy. IMPRESSION: Bilateral thyroid nodules that meet criteria for follow-up 2017 ACR TI-RADS LEVEL: TR-RADS 4 - Moderately Suspicious: Follow if > 1 cm, FNA if > 1.5 cm *Highest TI-RADS level nodule reported
== END | disposition home or self-care (01) ==
LOC: RADUSWWP 13:29
PROVIDERS: ATTEND Internal Medicine
DX: E04.2 Nontoxic multinodular goiter (principal); R22.0 Localized swelling, mass and lump, head
CPT/HCPCS: 76536

== ENCOUNTER → 2022-07-06 | Outpatient (CLI) | payer MEDICARE, OTHER ==
[2022-07-06 14:42] LABS: HCT 37.6 % (37.2-46.3); HGB 12.3 g/dL (12.0-15.0); MCH 32.7 pg (27.0-32.0); MCHC 32.7 g/dL (32.0-37.0); Mean Platelet Volume 10.4 fL (9.5-12.2); NRBC Per 100 WBC 0 /100 WBCS (0.0-0.0); Platelet Count 172 X 10*3/uL (140-440); RBC 3.76 X 10*6/uL (4.10-5.20); RDW 12.7 % (11.5-14.5); WBC 4.99 X 10*3/uL (4.50-10.00)
[2022-07-06 15:11] LABS: Ferritin 58.1 ng/mL (10.0-291.0)
[2022-07-06 17:34] LABS: % Iron Saturation 38.31 (12.00-45.00); African American GFR (CKD) 53.8 (60.0-200.0); Albumin 4.6 g/dL (3.8-4.9); Albumin/Globulin Ratio 2.09 (1.60-3.17); Anion Gap 9.3 mmol/L (10.00-18.00); BUN/Creat Ratio 22.55 Ratio (12.00-20.00); Blood Urea Nitrogen 24.8 mg/dL (9.0-27.0); Calcium 10.1 mg/dL (8.7-10.3); Carbon Dioxide 25.7 mmol/L (20.0-27.5); Globulin 2.2 g/dL (1.6-3.3); Magnesium 2.1 mg/dL (1.5-2.4); Non-African American GFR(CKD) 46.4 (60.0-200.0); Phosphorus 3.5 mg/dL (2.4-5.1); Potassium 4.8 mmol/L (3.5-5.5); Total Bilirubin 0.4 mg/dL (0.30-1.20); Total Protein 6.8 g/dL (6.2-8.2); Uric Acid 5.2 mg/dL (2.9-7.7)
[2022-07-06 18:27] LABS: Appearance,Urine Clear (Clear); Bilirubin,Urine Negative (Negative); Blood,Urine Negative (Negative); Color,Urine Yellow (Yellow); Ketones,Urine Negative (Negative); Nitrite,Urine Negative (Negative); PH, Urine 5.5 (5.0-8.0); Specific Gravity,Urine 1.013 (1.001-1.030); Urobilinogen,Urine 0.2 (0.2,1.0)
[2022-07-06 22:28] LABS: Microalbumin Creatinine Ratio <30 mg/g Creat (0-30); Urine Creatinine 61.4 mg/dL (28.0-217.0)
== END | disposition home or self-care (01) ==
LOC: LABWHC1 10:25
PROVIDERS: ATTEND Internal Medicine
DX: N25.81 Secondary hyperparathyroidism of renal origin (principal); N18.31 Chronic kidney disease, stage 3a; N39.0 Urinary tract infection, site not specified; E55.9 Vitamin D deficiency, unspecified; D63.1 Anemia in chronic kidney disease
CPT/HCPCS: 36415; 80053; 81003; 82043; 82306; 82570; 82728; 83540; 83550; 83735; 83970; 84100; 84550; 85027

== ENCOUNTER → 2022-12-17 | Outpatient (CLI) | payer MEDICARE, OTHER ==
--- NOTE | 2022-12-18 10:59 | MR ---
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 Specialized thin s equences were obtained through the internal auditory canals. Pre-and post gadolinium sequences were obtained. MR contrast: IV Contrast: 4.5 cc Gadavist FINDINGS: The keane-white junctions, ventricular system, and cisterns appear unremarkable. Scattered foci of h igh T2 signal intensity are seen within the periventricular white matter. Midline structures show no abnormality. Diffusion-weighted imaging shows no evidence of restricted diffusion. The susceptibility weighted images blooming artifact foci within the right frontal lobe compatible with microhemorrhage . The bone marrow signal is postsurgical changes. The remainder of the osseous bone marrow is within no rmal limits. Paranasal sinuses and mastoid air cells: Mild scattered paranasal sinus disease. Visualized orbits: Right aphakia. The left globe is intact. Postsurgical on the right involving the cerebellopontine angle with an encephalomalacia of the right cerebellum. Overall morphology of the cerebellum and cerebellopontine angle are stable. There is fill ing within the right internal auditory canal with postcontrast enhancement not significantly changed from prior overall. This area is predominantly outside the internal auditory canal and extends into t he internal auditory canal. Area within the internal auditory Canal measures 12 mm in transverse dime nsion and 8.5 mm in AP dimension. Another portion of this lesion which is larger and outside the inte rnal auditory canal at the cerebellopontine angle measures similarly up to 16 x 5 mm. The 7th and 8th cranial nerve are not well visualized due to this mass. The left internal auditory canal sequences demonstrate no significant irregularity. The left 7th tractor crane operator nial nerves, 8 cranial nerves, and cerebellar pontine angles appear unremarkable. After the administ ration gadolinium, no abnormal enhancement is seen within the left internal auditory canals. Vascular loop: None. IMPRESSION: 1. Stable exam with postsurgical changes on the right. There remains enhancing mass which extends in to the internal auditory canal. 2. No evidence of intracranial mass nor acute/subacute CVA. 3. No evidence of left internal auditory canal abnormality. 4. Nonspecific white matter changes, likely secondary to small vessel ischemic disease.
== END | disposition home or self-care (01) ==
LOC: RADMRIMAIN 13:38
PROVIDERS: ATTEND Otolaryngology
DX: D33.3 Benign neoplasm of cranial nerves (principal); R90.82 White matter disease, unspecified
CPT/HCPCS: 70553; A9585

== ENCOUNTER 2023-01-10 08:58 | Day surgery (SDC) | payer MEDICARE, OTHER ==
[2023-01-03 09:57] VITALS: BMI 19.3
[~2023-01-10 08:58] MED LIST changes: +LACTATED RINGERS 1,000 ML IV SCH; +LIDOCAINE 1% (10MG/ML) FOR IV START INTRADERMA PRN; -REGADENOSON 0.4 MG/5 ML SYRINGE IV PRN
[2023-01-10 09:40] VITALS: RESP 16; TEMP 97
[2023-01-10] MEDS ORDERED: PROPOFOL 10 MG/ML 20 ML VIAL IV ONE (09:53)
[2023-01-10] MEDS ORDERED: LIDOCAINE 2% INJ 20 MG/ML (2 ML VIAL) ONE (09:53)
--- NOTE | 2023-01-10 10:06 | P.GSHP ---
History of Present Illness H&P Date: 01/10/23 Chief Complaint: Positive cologuard The patient had a recent cologuard come back positive. He has had previous "guards in the past which were negative. Denies any abdominal pain, change in bowel habits, blood in the stool or dark tarry stool. No personal history of colon polyps. Past Medical History Past Medical History: GI Bleed, Hearing Disorder / Deafness, Hyperlipidemia, Hypertension, Musculoskeletal Disorder, Osteoarthritis (OA), Renal Disease Additional Past Medical History / Comment(s): "Minimal kidney problems", sees real estate transaction coordinator. Hx GI bleed in 2014. 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 Osteoarthritis affecting bilateral hands and low back. Acoustic Neuroma right ear, deaf in right ear, wears bilateral hearing aids . History of Any Multi-Drug Resistant Organisms: None Reported Past Surgical History: Ear Surgery, Hysterectomy, Tonsillectomy Additional Past Surgical History / Comment(s): Colonoscopy, right ear surgery, right cataract removal with lens implant, vaginal hysterectomy. Past Anesthesia/Blood Transfusion Reactions: No Reported Reaction Additional Past Anesthesia/Blood Transfusion Reaction / Comment(s): Hx blood transfusion with no issues. Past Psychological History: No Psychological Hx Reported Smoking Status: Former smoker Past Alcohol Use History: Occasional Additional Past Alcohol Use History / Comment(s): Started smoking about age 19 and quit at age 29. Past Drug Use History: None Reported - Past Family History Father Family Medical History: Cancer, Respiratory Disorder Additional Family Medical History / Comment(s): Father of lung cancer- he had TB. He at age 46 yrs. Mother Family Medical History: CVA/TIA, Hypertension Additional Family Medical History / Comment(s): Mother at age 78yrs. Brother(s) Family Medical History: No Reported History Sister(s) Family Medical History: Deep Vein Thrombosis (DVT) Son(s) Family Medical History: Diabetes Mellitus Daughter(s) Family Medical History: No Reported History Medications and Allergies Home Medications Medication Instructions Recorded Confirmed Type ramipriL [Altace] 10 mg PO QAM 02/27/15 01/10/23 History Folic Acid 0.8 mg PO DAILY 01/03/23 01/10/23 History Rosuvastatin Calcium 5 mg PO DAILY 01/03/23 01/10/23 History calcitrioL [Calcitriol] 0.25 mcg PO FR 01/03/23 01/10/23 History Allergies Allergy/AdvReac Type Severity Reaction Status Date / Time No Known Allergies Allergy Verified 01/10/23 09:40 Surgical - Exam Osteopathic Statement: *. No significant issues noted on an osteopathic structural exam other than those noted in the History and Physical/Consult. Vital Signs Temp Pulse Resp BP Pulse Ox 97 F L 76 16 168/75 99 01/10/23 09:24 01/10/23 09:24 01/10/23 09:24 01/10/23 09:24 01/10/23 09:24 - General well developed, well nourished, no distress - Eyes normal ocular movement - Neck trachea midline - Respiratory normal respiratory effort, clear to auscultation - Cardiovascular Rhythm: regular - Abdomen Abdomen: soft, non tender Assessment and Plan (1) Colon cancer screening Current Visit: Yes Status: Acute Code(s): Z12.11 - ENCOUNTER FOR SCREENING FOR MALIGNANT NEOPLASM OF COLON SNOMED Code(s): 475165187 (2) Positive colorectal cancer screening using Cologuard test Current Visit: Yes Status: Acute Code(s): R19.5 - OTHER FECAL ABNORMALITIES SNOMED Code(s): 482176734 Plan: Colonoscopy. The procedure, risks and complications were discussed. Questions were encouraged and answered.
--- NOTE | 2023-01-10 10:23 | P.PCN ---
Date of Procedure: 01/10/23 Preoperative Diagnosis: Colon cancer screening, positive cologuard Postoperative Diagnosis: Colon cancer screening, positive cologuard, diverticulosis Procedure(s) Performed: Colonoscopy Anesthesia: MAC Pickler Helper #1: Terri Rene Pathology: none sent Condition: stable Disposition: PACU Description of Procedure: The patient is taken to the endoscopy suite where colonoscope is passed per rectum to the cecum. She has an excellent prep. There are few scattered diverticuli through the entirety of the colon. Otherwise there was no evidence of polyp, mass lesion, ulcer, stricture or other mucosal abnormality. Some small internal hemorrhoids were seen on retroflexion of the scope. She tolerated the procedure without difficulty and is taken to recovery room in satisfactory condition. No need for another colonoscopy unless something changes with her bowel had Plan - Discharge Summary Discharge Rx Participant: No New Discharge Prescriptions: No Action ramipriL [Altace] 10 mg PO QAM calcitrioL [Calcitriol] 0.25 mcg PO FR Rosuvastatin Calcium 5 mg PO DAILY Folic Acid 0.8 mg PO DAILY Discharge Medication List ramipriL [Altace] 10 mg PO QAM 02/27/15 [History] Folic Acid 0.8 mg PO DAILY 01/03/23 [History] Rosuvastatin Calcium 5 mg PO DAILY 01/03/23 [History] calcitrioL [Calcitriol] 0.25 mcg PO FR 01/03/23 [History]
[2023-01-10 11:03] VITALS: BP 134/77; PULSE 67
== END 2023-01-10 11:40 | disposition home or self-care (01) ==
LOC: ORWHC2ENDO 08:58
PROVIDERS: ATTEND Surgery
DX: K57.30 Diverticulosis of large intestine without perforation or abscess without bleeding (principal); I10 Essential (primary) hypertension; E78.5 Hyperlipidemia, unspecified; M19.90 Unspecified osteoarthritis, unspecified site; Z86.018 Personal history of other benign neoplasm; Z79.899 Other long term (current) drug therapy; Z90.710 Acquired absence of both cervix and uterus; Z90.89 Acquired absence of other organs; Z98.890 Other specified postprocedural states; Z87.891 Personal history of nicotine dependence; Z86.59 Personal history of other mental and behavioral disorders; Z80.1 Family history of malignant neoplasm of trachea, bronchus and lung; Z83.3 Family history of diabetes mellitus; Z82.49 Family history of ischemic heart disease and other diseases of the circulatory system
CPT/HCPCS: 45378; J2704; J2001

== ENCOUNTER → 2023-09-13 | Outpatient (CLI) | payer MEDICARE, OTHER | END | disposition home or self-care (01) | LOC: RADMAMWWP 08:26 | PROVIDERS: ATTEND Internal Medicine | DX: Z53.9 Procedure and treatment not carried out, unspecified reason (principal) ==

== ENCOUNTER → 2023-09-13 | Outpatient (CLI) | payer MEDICARE, OTHER ==
--- NOTE | 2023-09-13 09:50 | US ---
EXAMINATION TYPE: US kidneys/renal and bladder DATE OF EXAM: 09/13/2023 COMPARISON: US CLINICAL INDICATION: Female, 83 years old with history of N18.31CHRONIC KIDNEY DISEASE; CKD EXAM MEASUREMENTS: Right Kidney: 8.7 x 4.0 x 4.3 cm Left Kidney: 9.4 x 3.7 x 3.4 cm Right Kidney: Small in size, no evidence of hydro, anechoic area medial probable gallbladder Left Kidney: No evidence of hydro, isoechoic area mid= 1.3 x 0.7 x 1.1 cm Bladder: wnl Bilateral Jets seen: No There is no evidence for hydronephrosis at this point in time. No nephrolithiasis is seen. The urin enriqueta bladder is anechoic. Bilateral ureteral jets are seen. IMPRESSION: Nonspecific left renal lesion. Consider CT correlation.
--- NOTE | 2023-09-13 11:20 | BD ---
EXAMINATION TYPE: Axial Bone Density DATE OF EXAM: 09/13/2023 CLINICAL HISTORY: 83 years old Female. 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 History of Fracture in Adulthood: no Secondary Osteoporosis: 1. Type 1 Diabetes: no 2. Hyperthyroidism: no 3. Menopause before 45: yes 4. Malnutrition: no 5. Chronic liver disease: no Rheumatoid Arthritis: no Current Tobacco Use: no RISK FACTORS HISTORY OF: Surgery to Spine/Hip(right/left)/Wrist (right/left): no EXAM MEASUREMENTS: Bone mineral densitometry was performed using the [employer]. Bone mineral density as measured about the Lumbar spine is: ----- L1-L4(G/cm2): 0.924 T Score Values are as follows: ----- L1: -2.3 ----- L2: -2.1 ----- L3: -1.8 ----- L4: -2.5 ----- L1-L4: -2.1 Z Score Values are as follows: ----- L1: 0.2 ----- L2: 0.4 ----- L3: 0.7 ----- L4: 0.0 ----- L1-L4: 0.4 Bone mineral density has: decreased -4.5 % since study of: 06.24.2021 Bone mineral density about the R hip (g/cm2): 0.748 Bone mineral density about the L hip (g/cm2): 0.751 T Score values are as follows: -----R Neck: -2.5 -----L Neck: -2.2 -----R Total: -2.1 -----L Total: -2.0 Z Score values are as follows: -----R Neck: 0.2 -----L Neck: 0.5 -----R Total: 0.6 -----L Total: 0.6 Bone mineral density has: decreased -2.7 % since study of: 06.24.2021 FRAX%s: The graph provided illustrates a 32.4 % chance for a major osteoporotic fx and a 23.8% chance for the hips probability for fx in 10 years time. IMPRESSION: Osteopenia (T Score between -2.5 and -1). There is slightly increased risk of fracture and the patient may be considered for treatment. Re-Screen 2-5 years. NOTE: T-SCORE=SD OF THE YOUNG ADULT MEAN.
--- NOTE | 2023-09-15 00:53 | MM ---
Reason for Exam: Screening (asymptomatic). Last mammogram was performed 1 year(s) and 1 month(s) ago. Patient History: Menarche at age 14. First Full-Term at age 18. Hysterectomy at age 34. Postmenopausal. Patient has history of breast feeding. Patient used Estrogen for 20 years. 1995, Benign Excisional Biopsy on the left side. Mother had breast cancer, age 67. Risk Values: Gayla 5 year model risk: 2.8%. NCI Lifetime model risk: 3.1%. Prior Study Comparison: 02/04/2020 Bilateral Screening Mammogram, [facility]. 06/24/2021 Bilateral Screening Mammogram, [facility]. 08/17/2022 Bilateral MG 3D screening mammo w/cad, [facility]. Tissue Density: The breasts are extremely dense, which lowers the sensitivity of mammography. Findings: Analyzed By CAD. The pattern is symmetrical. No significant interval change is evident. No suspicious groups of microcalcifications, spiculated or lobular masses, architectural distortion or other secondary signs of malignancy are mammographically apparent. Overall Assessment: Benign, BI-RAD 2 Management: Screening Mammogram of both breasts in 1 year. A negative mammogram report should not preclude additional follow up of suspicious palpable abnormalities. Patient should continue monthly self breast exam. A clinical breast exam by your physician is recommended on an annual basis and results should be correlated with mammographic findings. Electronically signed and approved by: Gatito Lopez D.O. Radiologis
== END | disposition home or self-care (01) ==
LOC: RADUSWWP 08:22
PROVIDERS: ATTEND Internal Medicine
DX: Z12.31 Encounter for screening mammogram for malignant neoplasm of breast (principal); M85.89 Other specified disorders of bone density and structure, multiple sites; N28.9 Disorder of kidney and ureter, unspecified; Z78.0 Asymptomatic menopausal state
CPT/HCPCS: 76770; 77063; 77067; 77080

== ENCOUNTER → 2023-10-07 | Outpatient (CLI) | payer MEDICARE, OTHER ==
[2023-10-07 07:28] LABS: African American GFR (CKD) 57 (>60 ml/min/1.73 sqM); Blood Urea Nitrogen 26 mg/dL (7-17); Non-African American GFR(CKD) 50 (>60 ml/min/1.73 sqM)
[2023-10-07 07:56] LABS: Albumin 4.5 g/dL (3.5-5.0); Anion Gap 8 mmol/L; Calcium 9.7 mg/dL (8.4-10.2); Carbon Dioxide 24 mmol/L (22-30); Chloride 109 mmol/L (98-107); Glucose 85 mg/dL (74-99); Potassium 4.2 mmol/L (3.5-5.1); Sodium 141 mmol/L (137-145); Total Protein 7.2 g/dL (6.3-8.2)
[2023-10-07 07:57] LABS: ALT 18 U/L (4-34); AST 27 U/L (14-36); Albumin/Globulin Ratio 1.7; Alkaline Phosphatase 52 U/L (38-126); Globulin 2.7 g/dL; Total Bilirubin 0.3 mg/dL (0.2-1.3)
--- NOTE | 2023-10-07 14:06 | CT ---
EXAMINATION TYPE: CT abdomen wo/w con DATE OF EXAM: 10/07/2023 COMPARISON: None HISTORY: left kidney mass CT DLP: 390.6 mGycm Automated exposure control for dose reduction was used. TECHNIQUE: Helical acquisition of images was performed from the lung bases through the top of iliac crest to include entire abdomen. CONTRAST: Performed with Oral Contrast and with IV Contrast, patient injected with 80 mL of Isovue 300. FINDINGS: The lung bases are clear. Moderate to marked cardiomegaly The gallbladder is normal without distention, wall thickening, pericholecystic fluid or gallstones. T here is no biliary ductal dilatation. There are multiple well-circumscribed low-density lesions scattered throughout the liver consistent w ith simple hepatic cysts. There is no splenomegaly or adrenal mass. There is a well-circumscribed 2.9 x 2.8 cm cystic mass in the region of the head of the pancreas. Thi s could represent a mucinous cystic pancreatic neoplasm or possibly a choledochocele cyst. MRI of the abdomen is recommended for further evaluation. There is no solid renal mass or hydronephrosis and there is homogeneous contrast enhancement of the r enal parenchyma. There is a 1 cm simple cortical cyst of the left kidney and no solid left renal mass . The caliber the abdominal aorta is normal is no retroperitoneal adenopathy or hemorrhage. The bowel loops are normal in caliber and there is no evidence of dilatation or obstruction. No infla mmatory changes are identified in the bowel wall or mesentery. There is no free intraperitoneal air or fluid. The osseous structures and soft tissues are intact. IMPRESSION: 1. 2.9 x 2.8 cm cystic mass in the region of the head of the pancreas. Differential diagnosis include s cystic pancreatic mass versus choledochocyst. Neoplasm is not excluded. MRI of the abdomen is recom mended for further evaluation. 2. No solid left renal mass. 3. Multiple small hepatic cysts. 4. Moderate to marked cardiomegaly.
== END | disposition home or self-care (01) ==
LOC: RADCTMAIN 06:47
PROVIDERS: ATTEND Urology
DX: N28.89 Other specified disorders of kidney and ureter (principal); K76.89 Other specified diseases of liver; I51.7 Cardiomegaly
CPT/HCPCS: 80053; 74170; 36415; Q9967

== ENCOUNTER → 2023-10-10 | Outpatient (CLI) | payer MEDICARE, OTHER ==
--- NOTE | 2023-10-10 19:30 | CA ---
Transthoracic Echo Report Name: Allegra Parmar Age: 83 Gender: F : 1940 Exam Date: 10/10/2023 15:53 Exam Location: [facility] Ht (in): 60 Wt (lb): 102 Ordering Physician: Piedad Braun MD Attending/Referring Phys: Piedad Braun MD Kicking Machine Operator Carolyn Man RDCS Procedure CPT: Indications: I51.7 Cardiomegaly Cardiac Hx: Technical Quality: Fair Contrast 1: Total Dose (mL): Contrast 2: Total Dose (mL): MEASUREMENTS (Male / Female) Normal Values 2D ECHO LV Diastolic Diameter PLAX 3.3 cm 4.2 - 5.9 / 3.9 - 5.3 cm LV Systolic Diameter PLAX 2.4 cm IVS Diastolic Thickness 0.8 cm 0.6 - 1.0 / 0.6 - 0.9 cm LVPW Diastolic Thickness 1.1 cm 0.6 - 1.0 / 0.6 - 0.9 cm LV Relative Wall Thickness 0.6 RV Internal Dim ED PLAX 2.4 cm LA Volume 32.6 cm??? 18 - 58 / 22 - 52 cm??? LA Volume Index 23.3 cm???/m??? 16 - 28 cm???/m??? M-MODE Aortic Root Diameter MM 2.5 cm LA Systolic Diameter MM 3.7 cm LA Ao Ratio MM 1.5 AV Cusp Separation MM 1.4 cm DOPPLER AV Peak Velocity 146.6 cm/s AV Peak Gradient 8.6 mmHg AV Mean Velocity 100.2 cm/s AV Mean Gradient 4.3 mmHg AV Velocity Time Integral 30.5 cm LVOT Peak Velocity 103.4 cm/s LVOT Peak Gradient 4.3 mmHg LVOT Velocity Time Integral 24.0 cm MV Area PHT 6.2 cm??? Mitral E Point Velocity 122.1 cm/s Mitral A Point Velocity 94.3 cm/s Mitral E to A Ratio 1.3 MV Deceleration Time 123.0 ms MV E' Velocity 8.1 cm/s Mitral E to MV E' Ratio 15.1 TR Peak Velocity 259.9 cm/s TR Peak Gradient 27.0 mmHg Right Ventricular Systolic Press 31.5 mmHg FINDINGS Left Ventricle Mildly increased left ventricular wall thickness. Left ventricular cavity size normal. Normal left ventricular systolic function with no obvious regional wall motion abnormalities. Left ventricular ejection fraction is estimated at 55-60 %. Grade 1 diastolic dysfunction. Right Ventricle Normal right ventricular size and function. Right ventricular systolic pressure within normal limits. Right Atrium Normal right atrial size. Left Atrium Normal left atrial size. Mitral Valve Structurally normal mitral valve. Mild mitral annular calcification. Mild-to- moderate mitral regurgitation. Aortic Valve Trileaflet aortic valve. No aortic stenosis. Trace aortic regurgitation. Tricuspid Valve Structurally normal tricuspid valve. Mild to moderate tricuspid regurgitation. Pulmonic Valve Structurally normal pulmonic valve. Pericardium No pericardial effusion. Aorta Normal size aortic root and proximal ascending aorta. CONCLUSIONS Normal LV systolic function Mild to moderate mitral regurgitation Mild to moderate tricuspid regurgitation Normal pulmonary artery systolic pressure Previewed by: Dr. Marv Easton MD (Electronically Signed) Final Date: 10 October 2023 19:29
== END | disposition home or self-care (01) ==
LOC: RADECHMAIN 15:49
PROVIDERS: ATTEND Internal Medicine
DX: I08.1 Rheumatic disorders of both mitral and tricuspid valves (principal)
CPT/HCPCS: 93306

== ENCOUNTER → 2023-10-26 | Outpatient (CLI) | payer MEDICARE, OTHER ==
--- NOTE | 2023-10-26 11:15 | MR ---
EXAMINATION TYPE: MR pancreas / mrcp wo/w con DATE OF EXAM: 10/26/2023 8:39 AM CLINICAL INDICATION:Female, 83 years old with history of K86.9 DISEASE OF PANCREAS, UNSPECIFIED; PHH, Abnormal CT COMPARISON: 10/07/2023 TECHNIQUE MRI ABDOMEN WITH CONTRAST: Multiplanar multi-sequence imaging was performed without and wit h IV contrast/gadolinium. The patient was given 4.5 cc Gadavist gadolinium intravenously and dynamic post-VIBE (volumetric interpolated breath-hold gradient recall echo) imaging was performed. IV Contrast: 4.5 cc Gadavist TECHNIQUE MRCP ABDOMEN WITHOUT CONTRAST: Multi planar, T2-weighted imaging with and without fat satur ation and chemical shift imaging was performed of the abdomen. Then, heavily T2 weighted imaging (kike f-Fourier acquisition single-shot turbo spin-echo) was utilized in order to study the biliary system. Maximum intensity projection images were reconstructed from the original data of the biliary tree. 3D reconstructions and MIP imaging performed on a separate workstation. FINDINGS: MRCP: * The common bile duct at the level of the pancreatic head measures 9 mm in size. * The common hepatic duct measures 6 mm in size. * The pancreatic duct is normal. LOWER CHEST: No gross irregularity. ABDOMEN Liver: No evidence for hepatic steatosis or cirrhosis. Scattered high T2 signal cysts are seen throug hout the liver. Some of this cysts have thin septations and are adjacent simple appearing cysts. Ther e is an enhancing lesion which persists on delayed imaging series 1101 image 340 and image 355. These enhancing lesions are higher T2 signal 9 and 7 mm respectively. Gallbladder and Bile ducts: No evidence for biliary stricture or evidence of choledocholithiasis. The gallbladder is within normal limits. Pancreas: No ductal dilation. No evidence for solid mass. Pancreatic head/uncinate process 31 x 27 mm This closely approximates the right kidney but on CT imaging appears to be separate with fat cleft be tween the right kidney. No abnormal postcontrast enhancement or evidence for Spleen: Normal for size. Adrenal glands: Unremarkable. Kidneys: No evidence for obstructive uropathy. No suspicious renal masses. Lateral intrinsic high T1 signal proteinaceous/hemorrhagic cyst. Additional nonenhancing simple appearing cysts on the left. Stomach and Bowel: No evidence for bowel wall thickening or evidence for obstruction. Retroperitoneum/Peritoneum: No evidence of pneumoperitoneum or free fluid. Vasculature: No aortic aneurysm. Musculoskeletal: The osseous structures appear intact. Scoliosis changes spine with degeneration. Lymph Nodes: No gross evidence for lymphadenopathy. Abdominal wall: Unremarkable. IMPRESSION: 1. Pancreatic head posterior cyst without suspicious features. Finding possibly representing sequela of prior pancreatitis versus side branch intraductal mucinous neoplasm versus other cystic neoplasms . Attention on follow-up imaging in one year with MRI MRCP with contrast to ensure stability. No tanmay d pancreatic lesions identified . 2. Mild extra hepatic biliary dilation. No evidence to suggest ductal stricture, choledocholithiasi s. 3. Bilateral Bosniak type I and type II equivalent renal cysts. 4. Couple enhancing lesions within the liver felt to represent hemangiomas. Additional simple appeari ng and mildly complex hepatic cyst. 5. Mildly dilated extrahepatic biliary system. Given patient's age is could be age-related.
== END | disposition home or self-care (01) ==
LOC: RADMRIMAIN 07:11
PROVIDERS: ATTEND Internal Medicine
DX: N28.1 Cyst of kidney, acquired (principal); K76.89 Other specified diseases of liver; K86.9 Disease of pancreas, unspecified; D18.03 Hemangioma of intra-abdominal structures
CPT/HCPCS: 74183; A9585

== ENCOUNTER → 2024-04-09 | Outpatient (CLI) | payer MEDICARE, OTHER ==
[2024-04-09 20:01] LABS: Appearance,Urine Clear (Clear); Bilirubin,Urine Negative (Negative); Blood,Urine Negative (Negative); Color,Urine Yellow (Yellow); Ketones,Urine Negative (Negative); Nitrite,Urine Negative (Negative); Specific Gravity,Urine 1.013 (1.001-1.030); Urobilinogen,Urine 0.2 E.U./DL
[2024-04-09 20:17] LABS: HCT 38.4 % (37.2-46.3); HGB 12.4 g/dL (12.0-15.0); MCHC 32.3 g/dL (32.0-37.0); Mean Platelet Volume 10.7 FL (9.5-12.2); NRBC Per 100 WBC 0 X 10*3/uL (0.00-0.01); Platelet Count 187 X 10*3/uL (140-440); RBC 3.88 X 10*6/uL (4.10-5.20); RDW 13.1 % (11.5-14.5); WBC 6.54 X 10*3/uL (4.50-10.00)
[2024-04-09 20:31] LABS: Bacteria,Urine None Seen (None Seen)
[2024-04-09 20:40] LABS: % Iron Saturation 29.62 (12.00-45.00); ALT 18 U/L (8-44); AST 25 U/L (13-35); Albumin 4.8 g/dL (3.8-4.9); Albumin/Globulin Ratio 2.18 Ratio (1.60-3.17); Alkaline Phosphatase 55 U/L (41-126); Blood Urea Nitrogen 25.3 mg/dL (9.0-27.0); Calcium 10.2 mg/dL (8.7-10.3); Carbon Dioxide 24.5 mmol/L (21.6-31.8); Chloride 105 mmol/L (96-109); Ferritin 61.5 ng/mL (10.0-291.0); Globulin 2.2 g/dL (1.6-3.3); Glucose 95 mg/dL (70-110); Iron 109 UG/DL (50-170); Potassium 4.5 mmol/L (3.5-5.5); Sodium 142 mmol/L (135-145); Total Bilirubin 0.3 mg/dL (0.3-1.2); Total Iron Binding Capacity 368 UG/DL (228-460); Uric Acid 3.7 mg/dL (2.9-7.7)
[2024-04-09 21:06] LABS: Microalbumin Creatinine Ratio <23 mg/g Cr (0-30); Urine Creatinine 51.1 mg/dL (28.0-217.0)
== END | disposition home or self-care (01) ==
LOC: LABWHC1 12:55
PROVIDERS: ATTEND Nurse Practitioner Family
DX: N18.31 Chronic kidney disease, stage 3a (principal)
CPT/HCPCS: 36415; 80053; 81001; 82043; 82306; 82570; 82728; 83540; 83550; 83735; 83970; 84100; 84550; 85027

== ENCOUNTER → 2024-05-11 | Outpatient (CLI) | payer MEDICARE, OTHER ==
--- NOTE | 2024-05-11 12:49 | MR ---
MRI abdomen with and without contrast. HISTORY: Pancreatic cyst follow-up. COMPARISON: MRI pancreas dated 10/26/2023. TECHNIQUE: Multiecho multiplanar images of the abdomen were taken with and without contrast. FINDINGS: There is a stable small pancreatic cyst in the posterior body of the pancreas. There is no pathologic al enhancement. There are stable hepatic cysts and renal cysts. The bowel loops are normal. There is no free intraperitoneal fluid. The caliber of the abdominal aort a is normal. There is no adrenal mass or splenic mass. There is no organomegaly. IMPRESSION: 1. Stable small cyst in the posterior body of the pancreas. 2. Stable hepatic and renal cysts. 3. No new abnormality seen. [facility], , 05/11/2024 12:46 PM
== END | disposition home or self-care (01) ==
LOC: RADMRIMAIN 07:15
PROVIDERS: ATTEND Surgery
DX: D49.0 Neoplasm of unspecified behavior of digestive system (principal); N28.1 Cyst of kidney, acquired; K86.2 Cyst of pancreas
CPT/HCPCS: 74183; A9585

== ENCOUNTER → 2024-10-24 | Outpatient (CLI) | payer MEDICARE, OTHER ==
--- NOTE | 2024-10-24 08:29 | MM ---
Reason for Exam: Screening (asymptomatic). Last mammogram was performed 1 year(s) and 1 month(s) ago. Patient History: Menarche at age 14. First Full-Term at age 18. Hysterectomy at age 34. Postmenopausal. Patient has history of breast feeding. Patient used Estrogen for 20 years. 1995, Benign Excisional Biopsy on the left side. Mother had breast cancer, age 67. Risk Values: Gayla 5 year model risk: 2.6%. NCI Lifetime model risk: 2.6%. Prior Study Comparison: 06/24/2021 Bilateral Screening Mammogram, [facility]. 08/17/2022 Bilateral MG 3D screening mammo w/cad, [facility]. 09/13/2023 Bilateral MG 3D screening mammo w/cad, [facility]. Tissue Density: The breasts are heterogeneously dense, which may obscure small masses. Findings: Analyzed By CAD. Benign-appearing vascular calcifications bilateral breasts are redemonstrated. There is occasional small benign-appearing round calcification in the left breast redemonstrated. There is no suspicious group of microcalcifications or new suspicious mass in either breast. Overall Assessment: Benign, BI-RAD 2 Management: Screening Mammogram of both breasts in 1 year. Some advise annual bilateral breast ultrasound surveillance in patients with background dense tissue. Patient should continue monthly self-breast exams. A clinical breast exam by your physician is recommended on an annual basis. This exam should not preclude additional follow-up of suspicious palpable abnormalities. Note on Gayla scores and lifetime risk: 1. A Gayla score greater than 3% is considered moderate risk. If this is the case, consider specialist referral to assess eligibility for a risk reducing agent. 2. If overall lifetime risk for the development of breast cancer is 20% or higher, the patient may qualify for future screening with alternating mammogram and breast MRI. [facility], , 10/24/2024 8:26 AM. Electronically signed and approved by: Ronal Alicia M.D.
== END | disposition home or self-care (01) ==
LOC: RADMAMWWP 07:46
PROVIDERS: ATTEND Internal Medicine
DX: Z12.31 Encounter for screening mammogram for malignant neoplasm of breast (principal); R92.333 Mammographic heterogeneous density, bilateral breasts; Z78.0 Asymptomatic menopausal state; Z80.3 Family history of malignant neoplasm of breast
CPT/HCPCS: 77063; 77067

== ENCOUNTER → 2024-12-21 | Outpatient (CLI) | payer MEDICARE, OTHER ==
--- NOTE | 2024-12-21 20:52 | MR ---
EXAMINATION TYPE: MR brain and iac wo/w con DATE OF EXAM: 12/21/2024 7:50 PM COMPARISON: MR brain and IAC 12/17/2022, 12/23/2021, 11/21/2019, 11/16/2016, 04/04/2015 CLINICAL INDICATION: Female, 84 years old with history of D33.3 BENIGN NEOPLASM OF CRANIAL NERVES, Re check of acoustic neuroma, Hx of neuroma removal 2002, RT side weakness/numbness, RT side headaches IV Contrast: 4.5 cc Gadobutrol TECHNIQUE: Multiplanar, multisequence images of the brain and brainstem is performed without and with IV contras t, utilizing 4.5 mL intravenous Gadobutrol . FINDINGS: Postsurgical on the right involving the cerebellopontine angle with an encephalomalacia of the right cerebellum redemonstrated. Similar surrounding increased FLAIR signal. Overall morphology of the cere bellum and cerebellopontine angle are stable. There is unchanged T2 hypotense/T1 signal intensity mul tilobulated avidly enhancing lesion at the right cerebellar pontine angle with intracanalicular exten rossy. The largest dimensions of this lesion measures 17 x 6 mm (series 1401, image 13). Extends appro ximately 7 mm into the internal auditory canal. Stable size from prior exams. No new regions of enhan cement identified. Adjacent dural thickening redemonstrated. The 7th and 8th cranial nerve are not we ll visualized due to this mass. Associated right mastoid effusion. The left internal auditory canal sequences demonstrate no significant irregularity. The left 7th in house cra nial nerves, 8 cranial nerves, and cerebellar pontine angles appear unremarkable. After the administ ration gadolinium, no abnormal enhancement is seen within the left internal auditory canals. No vascu lar loop identified. The keane-white junctions, ventricular system, and cisterns appear unremarkable for level of cerebral atrophy. Age-appropriate mild cerebral volume loss. Similar patchy scattered foci of high T2/FLAIR s ignal intensity are seen within the periventricular and subcortical white matter. Again likely repres ents sequelae of microangiopathy. Redemonstration of a heterogenous hypoenhancing 9 x 7 x 8 mm lesion within the left pituitary fossa. No significant deviation of the pituitary stalk. No invasion into the carotid artery however there is close proximity. Relatively stable in size from prior exam. Diffusion-weighted imaging shows no evidence of restricted diffusion. The susceptibility weighted jose c ges demonstrate approximately 10 stable scattered foci of blooming artifact consistent with prior angie rohemorrhage. Craniotomy defect along the right posterior lateral occipital lobe again noted from isabell or acoustic neuroma resection. The remainder of the osseous bone marrow is within normal limits. Dege nerative pannus is seen posterior to the dens again. Mild mucosal thickening in the inferior left maxillary sinus. Mild mucosal thickening of the ethmoid sinuses. Remaining paranasal sinuses are clear. Bilateral aphakia. IMPRESSION: 1. Postsurgical changes with stable size and morphology of known right cerebellopontine angle mass m ost consistent with recurrent acoustic neuroma. There is again intracanicular extension. No new suspi cious intracranial enhancement identified. 2. 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 3. No acute/subacute infarct. 4. Stable nonspecific moderate white matter change likely related to chronic small vessel ischemic di sease. 5. 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 [facility], , 12/21/2024 8:50 PM
== END | disposition home or self-care (01) ==
LOC: RADMRIMAIN 18:47
PROVIDERS: ATTEND Otolaryngology
DX: D33.3 Benign neoplasm of cranial nerves (principal); G93.89 Other specified disorders of brain; R90.82 White matter disease, unspecified; Z98.890 Other specified postprocedural states
CPT/HCPCS: 70553; A9585